=== PATIENT | male | born 1975 | race American Indian/Alaskan Native ===

== ENCOUNTER 2020-07-09 21:57 | Emergency (ER) | payer SELFPAY ==
[2020-07-09 22:16] VITALS: BP 141/92
--- NOTE | 2020-07-10 00:14 | Emergency Department Report ---
Chief Complaint: Urogenital-Male Stated Complaint: DISCHARGE PENIS Time Seen by Provider: 07/09/20 22:51 - HPI History of Present Illness: Patient presents with complaints of penile discharge x6 days. He denies any hematuria, penile bleeding, penile lesions, scrotal swelling or pain. Patient also denies any fever/chills/sweats. He admits to unprotected intercourse recently. Patient also complains of chronic discharge from his hemorrhoids x4 years. He denies any new changes or swelling or redness to the area. - Exam Vital Signs: Vital Signs 07/09/20 22:11 Temperature 99.4 F Pulse Rate 108 H Respiratory 18 Rate Blood Pressure 141/92 O2 Sat by Pulse 98 Oximetry MSE screening note: Focused history and physical exam performed. Due to findings the following was ordered: ED Medical Decision Making - Medical Decision Making Patient presents with complaints of penile discharge x6 days. He denies any hematuria, penile bleeding, penile lesions, scrotal swelling or pain. Patient also denies any fever/chills/sweats. He admits to unprotected intercourse recently. Patient also complains of chronic discharge from his hemorrhoids x4 years. He denies any new changes or swelling or redness to the area. Vitals are normal. Patient here with chronic complaints x4 years without no changes and penile discharge. Recommend patient seek outpatient treatment with Dr. Smith for further evaluation and treatment. Strict return precautions were discussed in detail with patient who verbalized understanding. He is well- appearing and stable for discharge home. ED Disposition for MSE Clinical Impression: Penile discharge, without blood Hemorrhoids Qualifiers: Hemorrhoid type: other Qualified Code(s): K64.8 - Other hemorrhoids Disposition: - TO HOME OR SELFCARE Is pt being admited?: No Condition: Stable Instructions: Hemorrhoids (ED), Sexually Transmitted Diseases (ED) Referrals: LORY SMITH MD [Staff Physician] - 2-3 Days (Penile discharge) [facility] [Provider Group] - 3-5 Days (hemorrhoids ) ED Review of Systems ROS: Stated complaint: DISCHARGE PENIS Other details as noted in HPI Constitutional: denies: chills, diaphoresis, fever, malaise, weakness Cardiovascular: denies: chest pain Gastrointestinal: denies: abdominal pain, nausea, vomiting, constipation, hematemesis, melena, hematochezia Genitourinary: discharge. denies: urgency, dysuria, frequency, hematuria, testicular pain, testicular mass Skin: denies: change in color Neurological: denies: abnormal gait ED Physical Exam - General Limitations: No Limitations General appearance: alert, in no apparent distress - Head Head exam: Present: atraumatic, normocephalic - Eye Eye exam: Present: normal appearance. Absent: scleral icterus - ENT ENT exam: Present: mucous membranes moist - Neck Neck exam: Present: normal inspection - Respiratory Respiratory exam: Present: normal lung sounds bilaterally. Absent: respiratory distress - Cardiovascular Cardiovascular Exam: Present: regular rate, normal rhythm - GI/Abdominal GI/Abdominal exam: Absent: tenderness - Rectal Rectal exam: Present: hemorrhoids (External nonthrombosed nonbleeding)
== END 2020-07-10 00:15 | disposition home or self-care (01) ==
LOC: ED 21:57
DX: K64.8 Other hemorrhoids (principal)
CPT/HCPCS: 99282